=== PATIENT | male | born 1995 | race Native Hawaiian/Other Pacific Islander ===

== ENCOUNTER 2025-05-13 10:20 | Outpatient (REF) | payer MEDICAID, SELFPAY ==
--- NOTE | ~2025-05-13 | XR_ITS ---
EXAMINATION: X-ray lumbar spine. CLINICAL INFORMATION: Back pain. TECHNIQUE: AP oblique and lateral views. 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 There is a prominent/large right transverse process of the transitional vertebra articulating with the sacrum and resulting in subchondral cyst formation. No acute cortical disruption or gross malalignment. No lytic or blastic lesions. XR/XR lumbar spine 4V min IMPRESSION: Sacralized vertebra labeled S1. 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 Electronically signed by: Dereck Sepulveda MD 05/13/2025 10:58 AM EDT
--- OUTSIDE RECORDS SUMMARY | 2025-05-13 09:00 | XMS_ITS | Encounter Summary ---
Author Organization [employer] Address [address] [facility] 7[address] [place] [address] Care Team Providers Care End User Consultant Name Role Phone Trace Zhao MD Primary Care Provider [phone] Reason for Referral * Consultation (Routine) - Pending Review Specialty Diagnoses / Procedures Referred By Contac t Referred To Contact Physical Therapy Diagnoses Lumbar back pain with radiculopathy affecting right lower extremity Trace Zhao MD [address] [place] [address] Phone: tel: fax: Referral ID Status Reason Start Date Expiration Date Visits Requested Visits Authorized [id number] Pending Review Specialty Services Required 05/13/2025 05/13/2026 1 1 Reason for Visit * Reason Comments New Patient Visit Encounter Details Date Type Department Care Team (Latest Contact Info) Description 05/13/2025 9:00 AM EDT Office Visit [facility] MEDICINE [address] [place], [place] [phone] Trace Zhao MD [address] [place] [phone] Lumbar back pain with radiculopathy affecting right [...] primary care. 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 He does not [...] Type Priority Associated Diagnoses Orde r Schedule CBC auto differential Lab Routine Screening for diabetes mellitus Expected: 05/13/2025 (Approximate), Expires: 05/13/2026 Comprehensive Metabolic Panel Lab Routine Screening for [...] Procedure Name Priority Date/Time Associated Diagnosis Comments XR LUMBAR SPINE COMPLETE 4+ VIEWS Routine 05/13/2025 10:35 AM EDT Lumbar back pain with radiculopathy affecting right lower extremity documented in this encounter Results * XR Lumbar Spine Complete 4+ Views (05/13/2025 10:35 AM EDT) Anatomical Region Laterality Modality Spine, L-spine Radiographic Maite ging 05/13/2025 10:3 5 AM EDT Narrative 05/13/2025 11:01 [place] [address] XRay Report Signed Patient: Soniya Kearney MR#: [id number] : 1995 Acct:[id number] Age/Sex: 29 / M ADM Date: 05/13/25 Loc: HO.HHCX Attending Dr: Trace Zhao MD Ordering Physician: Trace Zhao MD Date of Service: 05/13/25 Procedure(s): XR lumbar spine 4V min Accession Number(s): [id number] cc: Trace Zhao MD EXAMINATION: X-ray lumbar [...] Dereck Sepulveda MD 05/13/2025 10:58 AM EDT Dictated By: Dereck Cedeno MD Signed By: <Electronically signed by Dereck Leonardo MD in OV> 05/13/25 1058 DD/ 1035 TD/TT: 05/13/25 1053 Visual Stylist: Procedure Note Katina, Image - 05/13/[address] [address] XRay Report Signed Patient: Soniya Kearney OMR#: [id number] : 1995Acct:[id number] Age/Sex: 29 / MADM Date: 05/13/25 Loc: HO.HHCX Attending Dr: Trace Zhao MD Ordering Physician: Trace Zhao MD Date of Service: 05/13/25 Procedure(s): XR lumbar spine 4V min Accession Number(s): [id number] cc: Trace Zhao MD EXAMINATION: X-ray lumbar [...] Dereck Sepulveda MD 05/13/2025 10:58 AM EDT Dictated By: Dereck Cedeno MD Signed By: <Electronically signed by Dereck Leonardo MDin OV> 05/13/25 1058 DD/ 1035 TD/TT: 05/13/25 1053 Visual Stylist: Trace Zhao MD IMG XR PROCEDURES Final Result documented in this encounter Visit Diagnoses Diagnosis Lumbar back pain with radiculopathy affecting right lower extremity- Primary Screening for diabetes mellitus Screening for cholesterol level Screening examination for STD (sexually transmitted disease) documented in this encounter Additional Health Concerns Assessment Noted Time PHQ-9 Depression Total Score: 2 05/13/20 10:15 AM EDT documented as of this encounter Care Teams End User Consultant Relationship Specialty Start Date End Date Name, MD Trace [address] [place] [address] PCP - General Internal Medicine 05/13/25 documented as of this encounter
--- OUTSIDE RECORDS SUMMARY | 2025-05-13 11:16 | XMS_ITS | Clinical Summary ---
Author Organization [facility] Address [address] [place] [address] Care Team Providers Care System Administration Manager Name Role Phone Reji Marrero MD Primary Care Provider [phone] Surgical History Surgery Date Site/Laterality Comments OTHER SURGICAL HISTORY PROCEDURE: DENIES PREVIOUS SURGERY Medical History Medical History Date Comments Historical Medical DX 11/24/2021 DX:NO ACTI VE MEDICAL PROBLEMS Family History Medical History Relation Name Comments No Known Problems Brother 2 Diabetes Father No Known Problems Maternal Grandfather Diabetes Maternal Grandmother HTN, sc hizophrenia No Known Problems Mother No Known Problems Paternal Grandfather not in contact Hypertension Paternal Grandmother Diabete s, ?alzheimer's No Known Problems Sister 2 Relation Name Status Comments Brother 2 Alive Father Alive Maternal Grandfather Alive Maternal Grandmother Alive Mother Alive Paternal Grandfather not in contact Paternal Grandmother Alive Sister 2 Alive Social History Tobacco Use Types Packs/Day Years Used Date Smoking Tobacco: Never Smokeless Tobacco: Never Alcohol Use Standard Drinks/Week Comments Not Currently 0 (1 standard drink = 0.6 oz pur e alcohol) Sex and Gender Information Value Date Recorded Sex Assigned at Not on file Legal Sex Male 7:05 AM EST Gender Identity Not on file Sexual Orientation Not on file Obstetrics History Plan of Treatment Health Maintenance Due Date Last Done Comments DTaP,Tdap,and Td Vaccines (1 - Tdap) 2012 Hepatitis B Vaccines (1 of 3 - 19+ 3-dose series) 2012 Depression Screening 10/08/2022 HIV Screening 10/08/2022 Hepatitis C Screening 10/08/2022 Social Influencers of Health Screening 10/08/2022 COVID-19 Vaccine (3 - 2023-2 5 season) 2024 05/16/2021, 04/19/2021 Influenza Vaccine (#1) 2025 HIB Vaccines Aged Out No longer eligi ble based on patient's age to complete this topic HPV Vaccines Aged Out No longer eligi ble based on patient's age to complete this topic Hepatitis A Vaccines Aged Out No long er eligible based on patient's age to complete this topic IPV Vaccines Aged Out No longer eligi ble based on patient's age to complete this topic MMR Vaccines Aged Out No longer eligi ble based on patient's age to complete this topic Meningococcal ACWY Vaccine Aged Out N o longer eligible based on patient's age to complete this topic Meningococcal B Vaccine Aged Out No l onger eligible based on patient's age to complete this topic Pneumococcal Vaccine: Pediatrics (0 to 5 Years) and At-Risk Patients (6 to 49 Years) Aged Out No longer eligible b ased on patient's age to complete this topic RSV Immunization Patients Under 20 months Aged Out No longer eligible b ased on patient's age to complete this topic Varicella Vaccines Aged Out No longer eligible based on patient's age to complete this topic Care Teams System Administration Manager Relationship Specialty Start Date End Date Reji Marrero MD PCP - General Internal Medicine 08/26/21
--- OUTSIDE RECORDS SUMMARY | 2025-05-13 11:16 | XMS_ITS | Clinical Summary ---
Author Organization [facility] Address [address] [place] [address] Care Team Providers Care [employer] Name Role Phone Padmini Ocampo [facility] Primary Care Provider [phone] Source Comments PLEASE NOTE, if this patient is a minor, it may be UNLAWFUL to discuss sensitive information that is contained in these records (such as FAMILY PLANNING, MENTAL HEALTH or SUBSTANCE ABUSE) with the minor patient's parent or other person without the patient's specific authorization.[facility] Medications ketoconazole (NIZORAL) 2 % shampooIndicati ons:Fungal rash of trunk Apply topically once daily as needed for itching 120 mL 3 7 Active Family History Medical History Relation Name Comments Diabetes Maternal Grandfather Hypertension Maternal Grandfather Diabetes Maternal Grandmother High Cholesterol Maternal Grandmother Hypertension Maternal Grandmother Mental illness Maternal Grandmother Relation Name Status Comments Maternal Grandfather Maternal Grandmother Social History Tobacco Use Types Packs/Day Years Used Date Smoking Tobacco: Former Cigarettes Q uit: 03/14/2012 Alcohol Use Standard Drinks/Week Comments No 0 (1 standard drink = 0.6 oz pur e alcohol) Social Connections Answer Date Recorded Social Connections and Isolation 0 06/29/2019 Financial Resource Strain Answer Date R ecorded Financial Resource Strain 0 2018 Stress Answer Date Recorded Stress 0 06/29/2019 Physical Activity Answer Date Recorded Physical Activity 0 06/29/2019 Food Insecurity Answer Date Recorded Food 0 06/29/2019 Transportation Needs Answer Date Record ed Transportation 0 06/29/2019 Housing Stability Answer Date Recorded Housing 0 06/29/2019 Safety and Environment Answer Date Rayshawn rded Safety 0 06/29/2019 Utilities Answer Date Recorded Utilities 0 06/29/2019 Employment Answer Date Recorded Employment 0 06/29/2019 Sex and Gender Information Value Date Recorded Sex Assigned at Not on file Legal Sex Male 11:49 AM PDT Gender Identity Not on file Sexual Orientation Not on file Last Filed Vital Signs Vital Sign Reading Time Taken Comments Blood Pressure 130/84 03/14/2017 9:53 AM EDT Pulse 92 03/14/2017 9:53 AM EDT Temperature 36.8 C (98.2 F) 03/14/2017 9:53 AM EDT Respiratory Rate 19 03/14/2017 9:53 AM EDT Oxygen Saturation - - Inhaled Oxygen Concentration - - Weight 57.6 kg (127 lb) 03/14/2017 9:53 AM EDT Height 175.3 cm (5' 9 ) 03/14/2017 9:53 AM EDT Body Mass Index 18.75 03/14/2017 9:53 AM EDT Plan of Treatment Not on file Insurance [employer] Care Teams [employer] Relationship Specialty Start Date End Date Padmini Ocampo FNP [address] [place] [id number] PCP - General 12/31/18
== END 2025-05-13 10:21 | disposition home or self-care (01) ==
LOC: HO.HHCX 10:20
PROVIDERS: PCP Internal Medicine Geriatric Medicine; Visit Provider Internal Medicine Geriatric Medicine
DX: M54.16 Radiculopathy, lumbar region (principal); Z11.3 Encounter for screening for infections with a predominantly sexual mode of transmission; Z13.1 Encounter for screening for diabetes mellitus; Z13.220 Encounter for screening for lipoid disorders; Z11.4 Encounter for screening for human immunodeficiency virus [HIV]; Z11.59 Encounter for screening for other viral diseases; Z01.84 Encounter for antibody response examination
CPT/HCPCS: 72110

== ENCOUNTER → 2025-05-13 10:35 | Outpatient (BNV) | payer MEDICAID, SELFPAY | PROVIDERS: PCP Internal Medicine Geriatric Medicine; Visit Provider Radiology Diagnostic Radiology | DX: M54.50 Low back pain, unspecified (principal) | CPT/HCPCS: 72110 ==

== ENCOUNTER 2025-05-13 11:08 | Outpatient (REF) | payer MEDICAID, SELFPAY ==
--- OUTSIDE RECORDS SUMMARY | 2025-05-13 09:00 | XMS_ITS | Encounter Summary ---
Author Organization [employer] Address [address] [facility] [address] [place] [address] Care Team Providers Care Hospitality Services Manager Name Role Phone Trace Zhao MD Primary Care Provider [phone] Reason for Referral * Consultation (Routine) - Pending Review Specialty Diagnoses / Procedures Referred By Contac t Referred To Contact Physical Therapy Diagnoses Lumbar back pain with radiculopathy affecting right lower extremity Trace Zhao MD [address] [place] [address] Phone: tel: fax: Referral ID Status Reason Start Date Expiration Date Visits Requested Visits Authorized [id number] Pending Review Specialty Services Required 05/13/2025 05/13/2026 1 1 Reason for Visit * Reason Comments New Patient Visit Encounter Details Date Type Department Care Team (Latest Contact Info) Description 05/13/2025 9:00 AM EDT Office Visit [facility] MEDICINE [address] [place], [place] [phone] Trace Zhao MD [address] [place] [phone] Lumbar back pain with radiculopathy affecting right lower extremity (Primary Dx); Screening for diabetes mellitus; Screening for cholesterol level; Screening examination for STD (sexually transmitted disease) Social History Tobacco Use Types Packs/Day Years Used Date Smoking Tobacco: Never Smokeless Tobacco: Never Tobacco Cessation:Counseling Given: Not Answered Alcohol Use Standard Drinks/Week Comments Yes 0 (1 standard drink = 0.6 oz pur e alcohol) occionally Depression Answer Date Recorded Patient Health Questionnaire-9 Score 2 05/13/2025 Patient Health Questionnaire-9 Score 2 05/13/2025 Last PHQ-9: Questionnaire Data Not on file 0 05/13/2025 Housing Stability Answer Date Recorded What is your housing situation today? I have sinan mcbride 05/13/[address] you li ve. Do you have problems with any of the following? None of the above 05/13/2025 Food Insecurity Answer Date Recorded Within the past 12 months, y ou worried that your food would run out before you got money to buy more: Never True 05/13/2025 Within the past 12 months,th e food you bought just didn't last and you didn't have enough money to get more: Never True 07/2025 Transportation Answer Date Recorded In the past 12 months, has l ack of transportation kept you from medical appts, meetings, work or from getting things needed for daily living? No 05/13/2025 Utilities Answer Date Recorded In the past 12 months, has t he electric, gas, oil or water company threatened to shut off services in your home? 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 Not on file Not on file documented as of this encounter Last Filed Vital Signs Vital Sign Reading Time Taken Comments Blood Pressure 126/82 05/13/2025 9:30 AM EDT Pulse 89 05/13/2025 9:30 AM EDT Temperature 36.4 C (97.5 F) 05/13/2025 9:30 AM EDT Respiratory Rate 21 05/13/2025 9:30 AM EDT Oxygen Saturation 98% 05/13/2025 9:30 AM EDT Inhaled Oxygen Concentration - - Weight 95.9 kg (211 lb 6.4 oz) 05/13/2025 9:30 A M EDT Height 177.8 cm (5' 10 ) 05/13/2025 9:30 AM EDT Body Mass Index 30.33 05/13/2025 9:30 AM EDT documented in this encounter Functional Status * Over the past 2 weeks, how often have you been bothered by any of the following problems? Question Answer Date of Assessment Author Patient Health Questionnaire-2 Score 0 05/13/2025 10:15 AM EDT Elijah Bender MA * Little interest or pleasure in doing things Answer Date of Assessment Author Not at all 05/13/2025 10:15 AM EDT Clari Bender MA * Feeling down, depressed, or hopeless Answer Date of Assessment Author Not at all 05/13/2025 10:15 AM MARCELOT Clari Bender MA * Trouble falling or staying asleep, or sleeping too much Answer Date of Assessment Author More than half the days 05/13/2025 10:15 AM Clari Ayoub MA * Feeling tired or having little energy Answer Date of Assessment Author Not at all 05/13/2025 10:15 AM Clari Ayoub MA * Poor appetite or overeating Answer Date of Assessment Author Not at all 05/13/2025 10:15 AM Clari Ayoub MA * Feeling bad about yourself - or that you are a failure or have let yourself or your family down Answer Date of Assessment Author Not at all 05/13/2025 10:15 AM Clari Ayoub MA * Trouble concentrating on things, such as reading the newspaper or watching television Answer Date of Assessment Author Not at all 05/13/2025 10:15 AM Clari Ayoub MA * Moving or speaking so slowly that other people could have noticed? Or the opposite - being so fidgety or restless that you have been moving around a lot more than usual. Answer Date of Assessment Author Not at all 05/13/2025 10:15 AM Clari Ayoub MA * Thoughts that you would be better off or hurting yourself in some way Answer Date of Assessment Author Not at all 05/13/2025 10:15 AM Clari Ayoub MA * Patient Health Questionnaire-9 Score Answer Date of Assessment Author 2 05/13/2025 10:15 AM EDT Clari Bender MA * Over the last 2 weeks, how often have you been bothered by any of the following problems? Question Answer Date of Assessment Author Feeling nervous, anxious, or on edge 0 05/13/2025 10:15 AM EDT Bryant Bender MA Not being able to stop or control worrying 0 05/13/2025 10:15 AM EDT Bryant Bender MA Worrying too much about different things 0 05/13/2025 10:15 AM EDT Bryant Bender MA Trouble relaxing 0 05/13/2025 10:15 AM EDT Clari Bender MA Being so restless that it is hard to sit still 3 05/13/2025 10:15 AM MARCELOT Bryant Bender MA Becoming easily annoyed or irritable 2 05/13/2025 10:15 AM EDT Bryant Bender MA Feeling afraid as if something awful might happen 0 05/13/2025 10:15 AM EDT Clari Gardner MA MO-7 Total Score 5 05/13/2025 10:15 AM EDT Clari Bender MA documented as of this encounter Progress Notes * Trace Zhao MD - 05/13/2025 9:00 AM EDT Subjective Patient ID: Soniya Pablo is a 29 y.o. male who presents for New Patient Visit. Patient comes for the first time to the clinic to establish primary care. 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 He does not smoke cigarettes, he rarely drinks alcohol, he does not use illicit drugs, he does not use any medications regularly. He is allergic to amoxicillin but does not recall what happened since he had amoxicillin as a child. He has a family history of high cholesterol.No family history of malignancy. He he complains today of recurrent low back pain with radiation to the right leg for many years. Hehas tried physical therapy about 3 years ago without much improvement. He tells me he is having thepain since he was in high school. The patient is still able to perform his job without much limitation but he tells me that he is always in pain at the end of the workday. He does not have any focal weakness, no fevers or chills, no associated GI or complaints. Review of Systems Constitutional: Negative for chills, fatigue and fever. HENT: Negative for sore throat. Respiratory: Negative for cough, chest tightness and shortness of breath. Cardiovascular: Negative for chest pain, palpitations and leg swelling. Gastrointestinal: Negative for abdominal pain and blood in stool. Musculoskeletal: Positive for back pain. Visit Vitals BP 126/82 (BP Location: Left arm, Patient Position: Sitting, BP Cuff Size: Adult) Pulse 89 Temp 97.5 ??F (36.4 ??C) (Temporal) Resp 21 Ht 5' 10 (1.778 m) Wt 211 lb 6.4 oz (95.9 kg) SpO2 98% BMI 30.33 kg/m?? Smoking Status Never BSA 2.18 m?? Objective Physical Exam Constitutional: Appearance: Normal appearance. Cardiovascular: Rate and Rhythm: Normal rate and regular rhythm. Heart sounds: No murmur heard. Pulmonary: Effort: Pulmonary effort is normal. No respiratory distress. Breath sounds: No wheezing, rhonchi or rales. Abdominal: Palpations: Abdomen is soft. Tenderness: There is no abdominal tenderness. Musculoskeletal: Right lower leg: No edema. Left lower leg: No edema. Neurological: General: No focal deficit present. Mental Status: He is alert. Motor: No weakness. Assessment/Plan Diagnoses and all orders for this visit: Lumbar back pain with radiculopathy affecting right lower extremity Comments: Patient was prescribed Celebrex to use as needed. I recommended referral to physical therapy. X-ray of the lumbar spine prior to physical therapy evaluation. Orders: - XR Lumbar Spine Complete 4+ Views; Future - celecoxib (CeleBREX) 200 MG capsule; Take 1 capsule (200 mg) by mouth 2 times daily for 20 days. - Referral to Physical Therapy; Future Screening for diabetes mellitus Comments: I recommended evaluation with fasting blood work listed below Orders: - CBC auto differential; Future - Comprehensive Metabolic Panel; Future Screening for cholesterol level Comments: See above Orders: - Lipid Panel, Standard; Future Screening examination for STD (sexually transmitted disease) Comments: Patient agreed with referral to STI testing. He uses condoms for STD prevention and family-planning. He is monogamous with 1 female partner. He believes he had a Tdap vaccination less than 5 years ago. Orders: - HIV-1/2 Antigen and Antibodies, Fourth Generation, with Reflexes; Future - RPR (Monitor) with Reflex to Titer; Future - Hepatitis C Antibody with Reflex to HCV, RNA, Quantitative, Real-Time PCR; Future - Hepatitis B surface antigen, EIA; Future - Hepatitis B Surface Antibody, Qualitative; Future - Chlamydia/N. Gonorrhoeae RNA, TMA, Urogenitial documented in this encounter Plan of Treatment Scheduled Orders Name Type Priority Associated Diagnoses Orde r Schedule Comprehensive Metabolic Panel Lab Routine Screening for diabetes mellitus Expected: 05/13/2025 (Approximate), Expires: 05/13/2026 Lipid Panel, Standard Lab Routine Screening for cholesterol level Expected: 05/13/2025 (Approximate), Expires: 05/13/2026 HIV-1/2 Antigen and Antibodies, Fourth Generation, with Reflexes Lab Routine Screening examination for STD (sexually transmitted disease) Expected: 05/13/2025 (Approximate), Expires: 05/13/2026 RPR (Monitor) with Reflex to Titer Lab Routine Screening examination for STD (sexually transmitted disease) Expected: 05/13/2025, Expires: 05/13/2026 Hepatitis C Antibody with Reflex to HCV, RNA, Quantitative, Real-Time PCR Lab Routine Screening examination for STD (sexually transmitted disease) Expected: 05/13/2025, Expires: 05/13/2026 Hepatitis B surface antigen, EIA Lab Routine Screening examination for STD (sexually transmitted disease) Expected: 05/13/2025 (Approximate), Expires: 05/13/2026 Hepatitis B Surface Antibody, Qualitative Lab Routine Screening examination for STD (sexually transmitted disease) Expected: 05/13/2025 (Approximate), Expires: 05/13/2026 Chlamydia/N. Gonorrhoeae RNA, TMA, Urogenitial Microbiology Routine Screening examination for STD (sexually transmitted disease) Ordered: 05/13/2025 Scheduled Referrals Name Type Priority Associated Diagnoses Orde r Schedule Referral to Physical Therapy Outpatient Referral Routine Lumbar back pain with radiculopathy affecting right lower extremity Expected: 05/13/2025 (Approximate), Expires: 05/13/2026 documented as of this encounter Procedures Procedure Name Priority Date/Time Associated Diagnosis Comments CBC WITH AUTO DIFFERENTIAL Routine 05/13/2025 11:16 AM EDT Screening for diabetes mellitus XR LUMBAR SPINE COMPLETE 4+ VIEWS Routine 05/13/2025 10:35 AM EDT Lumbar back pain with radiculopathy affecting right lower extremity documented in this encounter Results * CBC auto differential (05/13/2025 11:16 AM EDT) White Blood Count 4.9 4.8 - 10.8 X10*3/uL [facility] Red Blood Count 4.92 4.60 - 5.80 X10*6/uL [facility] Hemoglobin 14.9 14.0 - 18.0 g/dl [facility] Hematocrit 44.0 42.0 - 52.0 % [facility] Mean Corpuscular Volume 89.4 80.0 - 98.0 fL [facility] Mean Corpuscular Hemoglobin 30.3 27.0 - 33.0 pg [facility] Mean Corpuscular HGB Conc 33.9 31.0 - 36.0 g/dl [facility] Red Cell Distribution Width 12.5 11.0 - 16.0 % [facility] Platelet Count 314 160 - 400 X10*3/uL [facility] Mean Platelet Volume 10.5 9.4 - 12.4 fL [facility] Neutrophils Percent Auto 60.8 45 - 73 % [facility] Imm Gran Pct Auto 0.4 0.0 - 0.4 % [facility] Lymphocytes Percent Auto 27.3 20 - 40 % [facility] Monocytes Percent Auto 9.1 2 - 11 % [facility] Eosinophils Percent Auto 1.6 0 - 4 % [facility] Basophils Percent Auto 0.8 0 - 2 % [facility] NRBC Pct Auto 0.0 0.0 - 0.2 /100WBC [facility] Neutrophils Absolute Auto 3.0 2.0 - 8.3 x10*3/uL [facility] Imm Gran Abs Auto 0.02 0.00 - 0.03 X10*3/uL [facility] Lymphocytes Absolute Auto 1.4 1.2 - 4.9 X10*3/uL [facility] Monocytes Absolute Auto 0.5 0.1 - 1.2 X10*3/uL [facility] Eosinophils Absolute Auto 0.1 0.0 - 0.4 X10*3/uL [facility] Basophils Absolute Auto 0.0 0.0 - 0.2 X10*3/uL [facility] NRBC Abs Auto 0.000 0.0 - 0.012 X10*3/uL [facility] Blood Venous blood specimen / Unknown 05/13/2025 11:16 AM EDT 05/13/2025 12:00 PM EDT Trace Zhao MD LAB BLOOD ORDERABLES Final Resul t [facility] [address] [place] [phone] * XR Lumbar Spine Complete 4+ Views (05/13/2025 10:35 AM EDT) Anatomical Region Laterality Modality Spine, L-spine Radiographic Maite ging 05/13/2025 10:3 5 AM EDT Narrative 05/13/2025 11:01 AM EDT [address] [address] XRay Report Signed Patient: Soniya Kearney MR#: [id number] : 1995 Acct:[id number] Age/Sex: 29 / M ADM Date: 05/13/25 Loc: HO.HHCX Attending Dr: Trace Zhao MD Ordering Physician: Trace Zhao MD Date of Service: 05/13/25 Procedure(s): XR lumbar spine 4V min Accession Number(s): [id number] cc: Trace Zhao MD EXAMINATION: X-ray lumbar spine. CLINICAL INFORMATION: Back pain. TECHNIQUE: AP oblique and lateral views. 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 There is a prominent/large right transverse process of the transitional vertebra articulating with the sacrum and resulting in subchondral cyst formation. No acute cortical disruption or gross malalignment. No lytic or blastic lesions. XR/XR lumbar spine 4V min IMPRESSION: Sacralized vertebra labeled S1. 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 Electronically signed by: Dereck Sepulveda MD 05/13/2025 10:58 AM EDT RP Dictated By: Dereck Cedeno MD Signed By: <Electronically signed by Dereck Leonardo MD in OV> 05/13/25 1058 DD/ 1035 TD/TT: 05/13/25 1053 Netbackup Admin: Procedure Note Donotuseinterpreter, Image - 05/13/[address] [address] XRay Report Signed Patient: Soniya Kearney OMR#: [id number] : 1995Acct:[id number] Age/Sex: 29 MADM Date: 05/13/25 Loc: HO.HHCX Attending Dr: Trace Zhao MD Ordering Physician: Trace Zhao MD Date of Service: 05/13/25 Procedure(s): XR lumbar spine 4V min Accession Number(s): [id number] cc: Trace Zhao MD EXAMINATION: X-ray lumbar spine. CLINICAL INFORMATION: Back pain. TECHNIQUE: AP oblique and lateral views. 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 There is a prominent/large right transverse process of the transitional vertebra articulating with the sacrum and resulting in subchondral cyst formation. No acute cortical disruption or gross malalignment. No lytic or blastic lesions. XR/XR lumbar spine 4V min IMPRESSION: Sacralized vertebra labeled S1. 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 Electronically signed by: Dereck Sepulveda MD 05/13/2025 10:58 AM EDT RP Dictated By: Dereck Cedeno MD Signed By: <Electronically signed by Dereck Leonardo MDin OV> 05/13/25 1058 DD/ 1035 TD/TT: 05/13/25 1053 Netbackup Admin: Trace Name IMG XR PROCEDURES Final Result documented in this encounter Visit Diagnoses Diagnosis Lumbar back pain with radiculopathy affecting right lower extremity- Primary Screening for diabetes mellitus Screening for cholesterol level Screening examination for STD (sexually transmitted disease) documented in this encounter Additional Health Concerns Assessment Noted Time PHQ-9 Depression Total Score: 2 05/13/20 10:15 AM EDT documented as of this encounter Care Teams Hospitality Services Manager Relationship Specialty Start Date End Date Name, MD Trace [address] [place] [address] PCP - General Internal Medicine 05/13/25 documented as of this encounter
[2025-05-13 12:09] LABS: MANUAL DIFF FLAG NO
[2025-05-13 12:13] LABS: Hematocrit 44.0 % (42.0-52.0); Hemoglobin 14.9 g/dl (14.0-18.0); Imm Gran Abs Auto 0.02 X10*3/uL (0.00-0.03); Imm Gran Pct Auto 0.4 % (0.0-0.4); Lymphocytes Absolute Auto 1.4 X10*3/uL (1.2-4.9); Mean Corpuscular HGB Conc 33.9 g/dl (31.0-36.0); Mean Corpuscular Hemoglobin 30.3 pg (27.0-33.0); Mean Corpuscular Volume 89.4 fL (80.0-98.0); NRBC Abs Auto 0.000 X10*3/uL (0.0-0.012); NRBC Pct Auto 0.0 /100WBC (0.0-0.2); Platelet Count 314 X10*3/uL (160-400); Red Blood Count 4.92 X10*6/uL (4.60-5.80); White Blood Count 4.9 X10*3/uL (4.8-10.8)
--- OUTSIDE RECORDS SUMMARY | 2025-05-13 12:28 | XMS_ITS | Clinical Summary ---
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
--- OUTSIDE RECORDS SUMMARY | 2025-05-13 12:28 | XMS_ITS | Clinical Summary ---
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
[2025-05-13 12:35] LABS: Alanine Aminotransferase 57 U/L (0-40); Albumin Level 4.9 g/dL (3.5-5.0); Alkaline Phosphatase 78 U/L (39-117); Anion Gap 11 (12-20); Aspartate Amino Transferase 37 U/L (5-37); Blood Urea Nitrogen 10 mg/dL (9-16); Calcium 9.3 mg/dL (8.4-10.2); Carbon Dioxide 28 mmol/L (22-29); Chloride 107 mmol/L (96-108); Cholesterol 142 mg/dL (<200); Estimated Glomerular Filt Rate > 60; HDL Cholesterol 32 mg/dL (>40); Potassium 4.8 mmol/L (3.3-5.1); Sodium 141 mmol/L (135-145); Total Protein 7.3 g/dL (6.5-8.0); Triglycerides 66 mg/dL (<150)
[2025-05-13 12:51] LABS: HBS Num1 0.34 mIU/mL (0-7.99); HBsAGNum1 0.36 S/CO (0.00-0.99); HIV Num 1 0.07 S/CO (0.00-0.99); Hepatitis B Surface Antigen Negative (Negative); ~HepC Num1 0.09 S/CO (0.00-0.79); ~Hepatitis B Surface Antibody NONREACTIVE (Nonreactive); ~Hepatitis C Antibody Nonreactive (Nonreactive)
== END 2025-05-13 11:09 | disposition home or self-care (01) ==
LOC: HO.HHCL 11:08
PROVIDERS: Visit Provider Internal Medicine Geriatric Medicine
DX: Z13.1 Encounter for screening for diabetes mellitus (principal); Z11.3 Encounter for screening for infections with a predominantly sexual mode of transmission; Z13.220 Encounter for screening for lipoid disorders
CPT/HCPCS: 36415; 80053; 80061; 85025; 86592; 86706; 86803; 87340; 87389

== ENCOUNTER → 2025-10-12 14:07 | Outpatient (BNVA) | payer OTHER, SELFPAY | PROVIDERS: Visit Provider Physician Assistant Medical | DX: S93.401A Sprain of unspecified ligament of right ankle, initial encounter (principal); S93.491A Sprain of other ligament of right ankle, initial encounter; W18.43XA Slipping, tripping and stumbling without falling due to stepping from one level to another, initial encounter | CPT/HCPCS: 99203 ==

== ENCOUNTER 2025-10-30 09:24 | Outpatient (AMB) | payer OTHER, SELFPAY ==
--- OUTSIDE RECORDS SUMMARY | 2025-10-30 09:27 | XMS_ITS | Clinical Summary ---
Author Organization 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 Name Role Phone Reji Marrero MD Primary Care Provider [phone] Surgical History Surgery Date Site/Laterality Comments OTHER [...] on file Sexual Orientation Not on file Plan of Treatment Health Maintenance Due Date Last Done Comments DTaP,Tdap,and Td Vaccines (1 - Tdap) 2012 Hepatitis B Vaccines (1 of 3 - 19+ 3-dose series) 2012 HPV Vaccines (1 - 3-dose SCD M series) 2020 HIV Screening 10/08/2022 Hepatitis C Screening 10/08/2022 Social Influencers of Health Screening 10/08/2022 Depression Screening 11/05/2024 COVID-19 Vaccine (3 - 2024-2 6 season) 2025 05/16/2021, 04/19/2021 Influenza Vaccine (#1) 2025 RSV Immunization Adult Patients (1 - 1-dose 75+ series) 2068 HIB Vaccines Aged Out No longer eligi [...] age to complete this topic Care Teams Pleasure Craft Sailor Relationship Specialty Start Date End Date Reji Marrero MD PCP - General Internal Medicine 08/26/21
--- OUTSIDE RECORDS SUMMARY | 2025-10-30 09:27 | XMS_ITS | Clinical Summary ---
Author Organization [facility] Address [address] [place] [address] Care Team Providers Care Hospital Account Liaison Name Role Phone Name, Trace CANDELARIA Primary Care Provider [phone] Allergies Active Allergy Reactions Criticality Noted Date Comments Amoxicillin 05/13/2025 Had allergy as a child He does not remember what happened Family History Medical History Relation Name Comments Hyperlipidemia Brother 1 Diabetes Father Relation Name Status Comments Brother 1 Alive Brother 2 Alive Father Sister 1 Alive Sister 2 Alive Social History Tobacco [...] file Not on file Not on file Last Filed Vital Signs [...] Mass Index 30.33 05/13/2025 9:30 AM EDT Plan of Treatment Health Maintenance Due Date Last Done Comments Family Planning (PISQ) 2008 HPV Vaccines (1 - Male 3-dos e series) 2008 DTaP/Tdap/Td Vaccines (1 - Tdap) 2012 Hepatitis B Vaccines (1 of 3 - 19+ 3-dose series) 2012 COVID-19 Vaccine ( - 2024-2 6 season) 2025 Influenza Vaccine (#1) 2025 Alcohol/Substance Use Screening 05/13/2026 05/13/2025 Depression Screening 05/13/2026 05/13/2025, 05/13/2025 Disability Screening 05/13/2026 05/13/2025 SDOH Screening 05/13/2026 05/13/2025 Tobacco Screening 05/13/2026 05/13/2025 Zoster Vaccines (1 of 2) 2043 RSV Patients and Patients Aged 60 years or older (1 - 1-dose 75+ series) 2068 HIV Screening Completed 05/13/2025 Hepatitis C Screening Completed 05/13/2025 HIB Vaccines Aged Out No longer eligi [...] patient's age to complete this topic Meningococcal Vaccine Aged Out No marjorie margarita eligible based on patient's age to complete this topic Pneumococcal Vaccine: Pediatrics (0 to 5 Years) and At-Risk Patients (6 to 49) Years Aged Out No longer eligible b ased on patient's age to complete this topic RSV under 20 months Aged Out No longe r eligible based on patient's age to complete this topic Rotavirus Vaccines Aged Out No longer eligible based on patient's age to complete this topic Procedures Procedure Name Priority Date/Time Associated Diagnosis Comments HEPATITIS C AB W/REFL TO HCV RNA, QN, PCR Routine 05/13/2025 11:16 AM EDT Screening examination for STD (sexually transmitted disease) HIV 1/2 ANTIGEN/ANTIBODY, FOURTH GENERATION W/RFL Routine 05/13/2025 11:16 AM EDT Screening examination for STD (sexually transmitted disease) from Last 3 Months or Most Recently Relevant to Health Maintenance Results * Hepatitis C Antibody with Reflex to HCV, RNA, Quantitative, Real-Time PCR (05/13/2025 11:16 AM EDT) Hepatitis C Antibody Nonreactive Nonreactive [facility] Comment:Antibodies to HCV no t detected; does not exclude early acuteHCV infection. Blood Venous blood specimen / Unknown 05/13/2025 11:16 AM EDT 05/13/2025 12:00 PM EDT us Trace Name LAB BLOOD ORDERABLES Final Resul t [facility] [address] [place] [phone] * HIV-1/2 Antigen and Antibodies, Fourth Generation, with Reflexes (05/13/2025 11:16 AM EDT) HIV AB/AG Nonreactive Nonreactive [facility] Comment:HIV-1 p24 Ag and/or HIV-1/HIV-2 Ab not detected.A test result that is nonreactive does not exclude thepossibility of exposure to or infection with HIV-1 and/orHIV-2. Nonreactive results in this assay for individualswith prior exposure to HIV-1 and/or HIV-2 may be due toantigen and antibody levels that are below the limit ofdetection of this assay.The [employer]SIGNMENT HIV Ag/Ab Combo assay result andsupplemental assay results should be interpreted inconjunction with the patient's clinical presentation,history and other laboratory results. If the results areinconsistent with clinical evidence, additional testing issuggested to confirm the result. Blood Venous blood specimen / Unknown 05/13/2025 11:16 AM EDT 05/13/2025 12:00 PM EDT us Trace Zhao MD LAB BLOOD ORDERABLES Final Resul t [facility] [address] [place] [address] [phone] from Last 3 Months or Most Recently Relevant to Health Maintenance Insurance [facility] C3 Care Teams Hospital Account Liaison Relationship Specialty Start Date End Date Name, MD Trace [address] [place] [address] PCP - General Internal Medicine 05/13/25
--- NOTE | 2025-10-30 10:02 | A.OFFVIS_ITS ---
Intake Visit Reasons: high grade luteal ankle sprain, ATF ligament tear Intake Note: swelling gone down a little but still worried about it from 10/16/2025 numbness and loss of feeling [facility] high grade luteal ankle sprain, ATF ligament tear: Details: The patient is a 30 year old male presenting for initial evaluation of right ankle pain. The patient sustained an injury to his right ankle two weeks ago wh en he slipped on ice while stepping down from a bus at work. X-rays were performed at an urgent care center which he states were negative for a fracture. He is currently able to bear weight on the ankle but cannot flex it . He denies any prior history of spraining this ankle. Medical History: - No previous history of spraining the right ankle. Social History: - The patient is currently out of work due to his injury. Review of Systems Const All systems reviewed & are unremarkable except as noted in HPI and below Physical Exam Extrem Other: *Bilateral Lower Extremity Focused Foot/Ankle Exam Vascular: DP/PT 2/4, CFT<3s to digits, TG warm to cool, mild right lateral ankle edema, pedal hair present Derm: No Ecchymosis present to the right ankle. Neuro: Protective sensation grossly intact to bilateral lower extremities. Negative Tinel sign to the intermediate dorsal cutaneous nerve. Msk: Mild pain on palpation along the right lateral ankle ligaments Mild Pain on palpation along the deltoid ligament right ankle No Pain on palpation along the syndesmosis right ankle Deformities: No evidence of hammertoes, bunions, Charcot changes, or other st ructural abnormalities. Gait: Antalgic Weight-bearing in open toe sandals Assessment & Plan Assessment & Plan (1) Moderate right ankle sprain: Code(s): S93.401A - Sprain of unspecified ligament of right ankle, initial encounter Category: Medical Qualifiers: Encounter type: initial encounter Qualified Code(s): S93.401A - Sprain of unspecified ligament of right ankle, initial encounter Plan: * The patient has at least a grade 1 ankle sprain, injuring the ATFL and deltoid ligament. * The patient was instructed to rest, ice, compress and elevate. * The patient was recommended weight-bearing a short cam boot which was dispensed today. The patient was instructed to take the supportive device off when sleeping. * The patient was given a handout of passive range of motion exercises to perform at home. * It was explained that if pain and symptoms persist by the next visit, they may be referred for physical therapy or an MRI. * Follow up in 2 weeks. We will plan to transition to a lace-up ankle brace at that point. Coding Level of Care Code New Pt Level 3 (86585) Diagnoses Moderate right ankle sprain, initial encounter S93.401A Encounter type: initial encounter Time Spent (min) 25
== END 2025-10-30 11:05 | disposition home or self-care (01) ==
LOC: HO.HPODS 09:25
PROVIDERS: Visit Provider Student in an Organized Health Care Education/Training Program
DX: S93.401A Sprain of unspecified ligament of right ankle, initial encounter (principal)
CPT/HCPCS: 99203

== ENCOUNTER → 2025-10-30 09:24 | Outpatient (BNVA) | payer OTHER, SELFPAY | PROVIDERS: Visit Provider Student in an Organized Health Care Education/Training Program | DX: S93.401A Sprain of unspecified ligament of right ankle, initial encounter (principal); X58.XXXA Exposure to other specified factors, initial encounter; Y93.9 Activity, unspecified; Y92.9 Unspecified place or not applicable; Y99.9 Unspecified external cause status | CPT/HCPCS: 99202 ==